=== PATIENT | female | born 1980 | race Caucasian/White ===

== ENCOUNTER 2017-06-26 00:35 | Emergency (ER) | payer OTHER ==
[~2017-06-26] VITALS: Ht 157.5 cm; Wt 72.1 kg
--- NOTE | 2017-06-26 00:40 | NUR ---
Pt BIB POLICE DUE TO ALCOHOL INTOXICATION. BROUGHT IN ON WHEELCHAIR. Pt UNABLE TO COMMUNICATE PROPERLY. PLACED IN ER BED 12 FOR MONITORING UNITL SOBER. VS STABLE.
--- NOTE | 2017-06-26 00:41 | NUR ---
BG CHECK 112.
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
[2017-06-26 05:00] VITALS: BP 102/60
== END 2017-06-26 04:30 | disposition home or self-care (01) ==
LOC: ER 00:36
DX: F10.129 Alcohol abuse with intoxication, unspecified (principal); G40.909 Epilepsy, unspecified, not intractable, without status epilepticus
CPT/HCPCS: 82962-TC; A4606; Z7610

== ENCOUNTER 2018-02-16 00:49 | Emergency (ER) | payer OTHER ==
[~2018-02-16] VITALS: Ht 160 cm; Wt 70.3 kg
[2018-02-16] MEDS ORDERED: HALOPERIDOL LACTATE INJ 5 MG/ML VIAL ONE (00:53)
--- NOTE | 2018-02-16 00:59 | NUR ---
pt medicated by rn per er md order.
[2018-02-16] MEDS ORDERED: HALOPERIDOL LACTATE INJ 5 MG/ML VIAL IM ONE (01:00)
[2018-02-16 01:26] LABS: CALCIUM, SERUM 9.1 mg/dL (8.5-10.1); CREATININE 0.7 mg/dL (0.6-1.3); POTASSIUM 3.8 mmol/L (3.5-5.1)
[2018-02-16 01:34] LABS: ALBUMIN 4.3 g/dL (3.4-5.0); BILIRUBIN,DIRECT 0.1 mg/dL (0.0-0.2); BILIRUBIN,TOTAL 0.3 mg/dL (0.2-1.0); SALICYLATE 2.8 mg/dL (2.8-20.0); TOTAL PROTEIN, SERUM 7.7 g/dL (6.4-8.2)
--- NOTE | 2018-02-16 01:37 | NUR ---
PT STILL SCREAMING INTERMITTENTLY, NO ACUTE DISTRESS NOTED, RESP EVEN AND UNLABORED. CALL LIGHT WITHIN REACH.
[2018-02-16 02:11] LABS: BASOPHILS % (AUTO) 0.4 % (0.0-2.0); EOSINOPHILS % (AUTO) 0.9 % (0.0-6.0); HEMATOCRIT 43 % (33-45); HEMOGLOBIN 14.5 g/dL (11.5-14.8); LYMPHOCYTES # (AUTO) 3.3 /CMM (0.8-4.8); LYMPHOCYTES % (AUTO) 44.9 % (20.0-44.0); MEAN CORPUSCULAR HGB CONC 34 g/dl (31.0-36.0); MEAN CORPUSCULAR VOLUME 89 fL (82-100); MONOCYTES # (AUTO) 0.4 /CMM (0.1-1.30); MONOCYTES % (AUTO) 5.2 % (2.0-12.0); NEUTROPHILS # (AUTO) 3.6 /CMM (1.8-8.9); NEUTROPHILS % (AUTO) 48.6 % (43.0-81.0); PLATELET COUNT (AUTO) 394 /CMM (150-450); RDW COEFFICIENT OF VARIATION 13.2 (11.5-15.0); RED BLOOD CELL COUNT(AUTO) 4.78 MIL/uL (4.0-5.2); WHITE BLOOD COUNT (AUTO) 7.3 K/uL (4.3-11.0)
[2018-02-16 02:37] LABS: APPEARANCE,URINE CLEAR (CLEAR); BILIRUBIN,URINE NEGATIVE (NEGATIVE); BLOOD, URINE 3+ Ery/uL (NEGATIVE); COLOR,URINE YELLOW (YELLOW); KETONES,URINE NEGATIVE (NEGATIVE); LEUKOCYTE ESTERASE ,URINE NEGATIVE (NEGATIVE); NITRITE, URINE NEGATIVE (NEGATIVE); PH,URINE 5.5 (5.0-8.0); PROTEIN,URINE NEGATIVE (NEGATIVE); UGLUCOSE NEGATIVE (NEGATIVE); UROBILINOGEN,URINE 0.2 EU/dL (0.2)
[2018-02-16 02:49] LABS: BACTERIA,URINE None seen /HPF (None Seen); SQUAMOUS EPITHELIAL CELL,UR Few /HPF (None Seen); WBC,URINE 0-2 /HPF (0-3)
--- NOTE | 2018-02-16 04:31 | NUR ---
PT ASLEEP, NO ACUTE DISTRESS NOTED, RESP EVEN AND UNLABORED. CALL LIGHT WIHTIN REACH. WILL CONTINUE TO MONITOR PT CLOSELY.
--- NOTE | 2018-02-16 06:16 | NUR ---
[facility] nixon in [facility] - 02/16/18 at 0616 by JUANA BALJIT SESAY AFTER HOURS [phone]
[2018-02-16 06:44] VITALS: BP 100/51
--- NOTE | 2018-02-16 06:44 | NUR ---
Patient discharged to home in stable condition. Written and verbal after care instructions given. Patient verbalizes understanding of instruction.IV removed. Catheter intact and site benign. Pressure and 4x4 applied to site. No bleeding noted.PT ambulatory with a steady gait
== END 2018-02-16 06:44 | disposition home or self-care (01) ==
LOC: ER 00:50
DX: T51.0X1A Toxic effect of ethanol, accidental (unintentional), initial encounter (principal); F10.229 Alcohol dependence with intoxication, unspecified; R41.0 Disorientation, unspecified; F29 Unspecified psychosis not due to a substance or known physiological condition; F12.10 Cannabis abuse, uncomplicated; R45.1 Restlessness and agitation; G40.909 Epilepsy, unspecified, not intractable, without status epilepticus; Z60.2 Problems related to living alone; Y92.89 Other specified places as the place of occurrence of the external cause
CPT/HCPCS: 36415; 80048-TC; 80076-TC; 80305; 81000-TC; 84703-TC; 85025-TC; A4606; G0480; J1630; Z7610

== ENCOUNTER 2018-06-03 10:32 | Emergency (ER) | payer OTHER ==
[~2018-06-03] VITALS: Ht 157.5 cm; Wt 57.2 kg
--- NOTE | 2018-06-03 11:00 | NUR ---
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 PT STS SHE WAS FEELING SUICIDAL AND DEPRESSED BECAUSE SHE'S AN ALCOHOLIC AND SHE'S VERY TIRED. PT STS SHE VOMITTED AND SHE ACTUALLY SAW PILLS ABT 5 PIECES. DENIES PAIN, ONLY FEELING TIRED. NAD VSS RR EVEN AND UNLABORED. PLACED ON CONT CARDIAC AND POX MONITORING. WILL CONT TO MONITOR
--- NOTE | 2018-06-03 11:43 | NUR ---
CALLED [employer] [employer] AND SPOKE TO THEIR REP, MARIUSZ, AND WAS TOLD THAT THERE SHOULD NOT BE ANY EMERGENT ISSUES RISING FROM THIS INCIDENT. WAS TOLD THAT THE PT WOULD HAVE GI UPSET AND SOME SEDATION, BUT OTHERWISE WOULD BE STABLE.
[2018-06-03 11:45] LABS: BASOPHILS # (AUTO) 0.1 /CMM (0.0-0.2); BASOPHILS % (AUTO) 0.8 % (0.0-2.0); EOSINOPHILS % (AUTO) 0.9 % (0.0-6.0); HEMATOCRIT 43 % (33-45); HEMOGLOBIN 14.3 g/dL (11.5-14.8); LYMPHOCYTES # (AUTO) 1.7 /CMM (0.8-4.8); LYMPHOCYTES % (AUTO) 19.3 % (20.0-44.0); MEAN CORPUSCULAR HEMOGLOBIN 31 PG (26.0-33.0); MEAN CORPUSCULAR HGB CONC 33 g/dl (31.0-36.0); MEAN CORPUSCULAR VOLUME 93 fL (82-100); MONOCYTES # (AUTO) 0.5 /CMM (0.1-1.30); MONOCYTES % (AUTO) 5.6 % (2.0-12.0); NEUTROPHILS # (AUTO) 6.6 /CMM (1.8-8.9); NEUTROPHILS % (AUTO) 73.4 % (43.0-81.0); PLATELET COUNT (AUTO) 339 /CMM (150-450); RDW COEFFICIENT OF VARIATION 12.5 (11.5-15.0); RED BLOOD CELL COUNT(AUTO) 4.66 MIL/uL (4.0-5.2)
[2018-06-03 11:54] LABS: CALCIUM, SERUM 8.8 mg/dL (8.5-10.1); CREATININE 0.8 mg/dL (0.6-1.3); POTASSIUM 4.4 mmol/L (3.5-5.1)
[2018-06-03 12:07] LABS: ALBUMIN 3.9 g/dL (3.4-5.0); BILIRUBIN,DIRECT 0.1 mg/dL (0.0-0.2); BILIRUBIN,TOTAL 0.4 mg/dL (0.2-1.0); SALICYLATE 2.9 mg/dL (2.8-20.0); TOTAL PROTEIN, SERUM 7.2 g/dL (6.4-8.2)
[2018-06-03 13:18] LABS: APPEARANCE,URINE Clear (CLEAR); BILIRUBIN,URINE Negative (NEGATIVE); BLOOD, URINE Moderate Ery/uL (NEGATIVE); COLOR,URINE Yellow (YELLOW); KETONES,URINE Negative (NEGATIVE); LEUKOCYTE ESTERASE ,URINE Negative (NEGATIVE); NITRITE, URINE Negative (NEGATIVE); PROTEIN,URINE Negative (NEGATIVE); UGLUCOSE Negative (NEGATIVE); UROBILINOGEN,URINE 0.2 EU/dL (0.2)
[2018-06-03 13:34] LABS: BACTERIA,URINE None seen /HPF (None Seen); SQUAMOUS EPITHELIAL CELL,UR Few /HPF (None Seen); WBC,URINE 0-3 /HPF (0-3)
--- NOTE | 2018-06-03 13:48 | NUR ---
JOSIAS ELDER WAS CALLED AND SAID SHE WOULD BE HERE SOON SHE COULD.
--- NOTE | 2018-06-03 15:04 | NUR ---
SEEN BY JERROD FERRARA, NOT HOLDABLE AND DENIES SI/HI, DR LOMBARDI AWARE AND WILL BE D/C TO F/U AT [facility] TOMORROW PER JERROD
--- NOTE | 2018-06-03 15:15 | NUR ---
pending discharge. pt got the list of refferals from [facility]. Pt sts she wants to leave now and she can't wait for the discharge papers. Pt ambulatory in a steady gait. left in stable condition. Dr. Gonzalez notified
[2018-06-03 15:27] VITALS: BP 101/55
== END 2018-06-03 15:15 | disposition home or self-care (01) ==
LOC: ER 10:34
DX: T42.6X1A Poisoning by other antiepileptic and sedative-hypnotic drugs, accidental (unintentional), initial encounter (principal); G40.909 Epilepsy, unspecified, not intractable, without status epilepticus; Z60.2 Problems related to living alone; F10.20 Alcohol dependence, uncomplicated; Y90.5 Blood alcohol level of 100-119 mg/100 ml; Y92.89 Other specified places as the place of occurrence of the external cause
CPT/HCPCS: 36415; 80048; 80076; 80305; 80329; 81001; 84703; 85025; 99284; A4606; G0480 ×2; Z7610; 81000-TC